=== PATIENT | female | born 1960 ===

== ENCOUNTER 2017-10-21 10:00 | Inpatient (IN) | payer OTHER ==
[~2017-10-21] VITALS: Ht 160 cm; Wt 75.7 kg
[2017-10-21] MEDS ORDERED: LOSARTAN POTASS25 MG PO (10:53)
[2017-10-21] MEDS ORDERED: SYNTHROID175 MCG PO (10:53)
[2017-10-21] MEDS ORDERED: ZETIA10 MG PO (10:53)
[2017-10-21] MEDS ORDERED: PRAVASTATIN SOD40 MG PO (10:53)
[2017-10-21] MEDS ORDERED: MAXIMUM D310000 UNIT PO (10:54)
[2017-10-21] MEDS ORDERED: PRILOSEC OTC20 MG PO (10:54)
[2017-10-30] MEDS ORDERED: PERCOCET 5-3251 EACH PO (09:01)
[2017-10-30] MEDS ORDERED: INTESTINEX680 M1 PO (09:01)
[2017-10-30] MEDS ORDERED: OMEPRAZOLE20 MG PO (09:01)
== END 2017-10-30 10:20 | disposition home or self-care (01) | DRG 330 ==
LOC: O/R 10-27 07:16 → SURG 10-27 10:15 → SURH 10-27 16:49
PROVIDERS: Surgery
PROC: 0DJD8ZZ Inspection of Lower Intestinal Tract, Via Natural or Artificial Opening Endoscopic (ICD-10-PCS; 2017-10-27)
PROC: 0DTN4ZZ Resection of Sigmoid Colon, Percutaneous Endoscopic Approach (ICD-10-PCS; principal; 2017-10-27 11:00)
DX: K57.20 Diverticulitis of large intestine with perforation and abscess without bleeding (principal)

== ENCOUNTER 2018-12-06 07:00 | Day surgery (SDC) | payer OTHER ==
[~2018-12-06 07:00] MED LIST: INTESTINEX680 M1 PO; LOSARTAN POTASS25 MG PO; MAXIMUM D310000 UNIT PO; OMEPRAZOLE20 MG PO; PERCOCET 5-3251 EACH PO; PRAVASTATIN SOD40 MG PO; PRILOSEC OTC20 MG PO; SYNTHROID175 MCG PO; ZETIA10 MG PO
== END 2018-12-06 11:20 | disposition home or self-care (01) ==
LOC: AMB-ENDOS 07:00
DX: D12.4 Benign neoplasm of descending colon (principal)